=== PATIENT | female | born 1980 | race Caucasian/White ===

== ENCOUNTER 2025-08-26 23:16 | Emergency (ER) | payer OTHER ==
[~2025-08-26] VITALS: Ht 167.6 cm; Wt 79.8 kg
[2025-08-26] MEDS ORDERED: KETO5DRO9 EACHEYE (23:49)
[2025-08-26] MEDS ORDERED: POLY10DR3 EACHEYE (23:49)
[2025-08-26 23:53] VITALS: BP 134/70; TEMP 98.4; O2SAT 98
== END 2025-08-26 23:53 | disposition home or self-care (01) ==
LOC: ER 23:21
DX: H10.11 Acute atopic conjunctivitis, right eye (principal); L29.9 Pruritus, unspecified